=== PATIENT | female | born 1985 | race Caucasian/White ===

== ENCOUNTER 2017-06-13 22:33 | Observation (INO) | payer OTHER ==
[2017-06-13] MEDS ORDERED: CYCLOBENZAPRINE 10 MG TAB PO ONE (22:52)
[2017-06-13] MEDS ORDERED: CYCLOBENZAPRINE 10 MG TAB ONE (22:52)
[2017-06-13 23:05] LABS: BASOPHILS % (AUTO) 1 % (0-3); EOSINOPHILS % (AUTO) 0 % (0-9); HEMATOCRIT 32 % (35-47); HEMOGLOBIN 11.5 gm/dl (12.0-15.5); LYMPHOCYTES % (AUTO) 14.4 % (10-50); MEAN CORPUSCULAR HEMOGLOBIN 31.1 pg (27.0-32.0); MEAN CORPUSCULAR HGB CONC 36.4 gm/dl (32.0-36.0); MEAN CORPUSCULAR VOLUME 86 fL (81-99); MONOCYTES % (AUTO) 6.4 % (0-12)
[2017-06-13 23:16] LABS: ALBUMIN 3.5 gm/dl (3.4-5.0); BILIRUBIN,TOTAL 0.5 mg/dl (0.2-1.0); CALCIUM 8.1 mg/dl (8.5-10.1); CARBON DIOXIDE 23.4 mEq/L (21-32); CREATININE 0.8 mg/dl (0.60-1.00); TOTAL PROTEIN 6.8 gm/dl (6.4-8.2)
[2017-06-13] MEDS ORDERED: HYDROMORPHONE 1 MG/ML SYRINGE IV ONE (23:45)
[2017-06-13] MEDS ORDERED: HYDROMORPHONE HCL 2 MG/ML SOL IV ONE (23:50)
[2017-06-13] MEDS ORDERED: HYDROMORPHONE HCL 2 MG/ML SOL ONE (23:51)
[2017-06-14] MEDS ORDERED: SODIUM CHLORIDE 0.9% 1000ML 1,000 ML IV ONE (00:24)
[2017-06-14] MEDS ORDERED: HYDROMORPHONE HCL 2 MG/ML SOL IV ONE ×2 (00:58→01:13)
[2017-06-14] MEDS ORDERED: HYDROMORPHONE HCL 2 MG/ML SOL ONE ×2 (01:01→01:14)
[2017-06-14] MEDS ORDERED: DIPHENHYDRAMINE 50 MG/ML SOL IV ONE (01:24)
[2017-06-14] MEDS ORDERED: DIPHENHYDRAMINE 50 MG/ML SOL ONE (01:27)
[2017-06-14] MEDS ORDERED: LACTATED RINGERS 1,000 ML IV SCH (01:45)
[2017-06-14] MEDS ORDERED: ACETAMINOPHEN 325 MG PO ONE (01:57)
[2017-06-14] MEDS ORDERED: KETOROLAC TROMETHAMINE 30 MG/ML SOL IV ONE (01:59)
[2017-06-14] MEDS ORDERED: KETOROLAC TROMETHAMINE 30 MG/ML SOL ONE (02:01)
[2017-06-14] MEDS ORDERED: ACETAMINOPHEN 325 MG ONE (02:03)
[2017-06-14] MEDS ORDERED: CYCLOBENZAPRINE 10 MG TAB PO SCH (09:00)
[2017-06-14] MEDS: HYDROMORPHONE HCL 2 MG/ML SOL IV PRN ×3 (10:34→22:18)
[2017-06-14] MEDS: ACETAMINOPHEN 325 MG PO PRN ×3 (14:06→22:09)
[2017-06-14 20:20] LABS: APPEARANCE,URINE Clear; BILIRUBIN,URINE NEGATIVE (NEGATIVE); COLOR,URINE Dark yellow; GLUCOSE, URINE (UA) NEGATIVE (NEGATIVE); KETONES,URINE 1+ (NEGATIVE); LEUKOCYTE ESTERASE ,URINE NEGATIVE (NEGATIVE); NITRATE,URINE NEGATIVE (NEGATIVE); OCCULT BLOOD,URINE NEGATIVE (NEG-TRACE)
[2017-06-14 20:31] LABS: BACTERIA 1+ (< 1+); CRYSTALS NEGATIVE (0-3 AVE/HPF); RBC,URINE 0-2 (0-3AV/HPF)
[2017-06-14] MEDS: SODIUM CHLORIDE 0.9% FLUSH 10 ML SOL IV PRN (22:18)
[2017-06-15 00:12] VITALS: RESP 14
[2017-06-15] MEDS: SODIUM CHLORIDE 0.9% FLUSH 10 ML SOL IV SCH ×2 (00:55→09:22)
[2017-06-15] MEDS: ACETAMINOPHEN 325 MG PO PRN (03:21)
[2017-06-15] MEDS: HYDROMORPHONE HCL 2 MG/ML SOL IV PRN (05:25)
[2017-06-15] MEDS: SODIUM CHLORIDE 0.9% FLUSH 10 ML SOL IV PRN (05:27)
[2017-06-15 08:11] VITALS: BP 131/82; PULSE 80; TEMP 98; O2SAT 100
[2017-06-15] MEDS ORDERED: APAP/HYDROCODONE 325/5 TAB PO PRN (08:39)
== END 2017-06-15 13:00 | disposition home or self-care (01) ==
LOC: ED 22:33 → ACUTE CARE 06-14 01:35
PROVIDERS: ADMIT Emergency Medicine; ATTEND Emergency Medicine
PROC: F01K5ZZ Range of Motion and Joint Integrity Assessment of Musculoskeletal System - Upper Back / Upper Extremity (ICD-10-PCS; principal; 2017-06-14)
PROC: F01L5ZZ Range of Motion and Joint Integrity Assessment of Musculoskeletal System - Lower Back / Lower Extremity (ICD-10-PCS; 2017-06-14)
PROC: F0125ZZ Range of Motion and Joint Integrity Assessment of Neurological System - Lower Back / Lower Extremity (ICD-10-PCS; 2017-06-14)
DX: M54.30 Sciatica, unspecified side (principal); R55 Syncope and collapse; M54.5 Low back pain; Z33.1 Pregnant state, incidental; Z3A.08 8 weeks gestation of pregnancy
CPT/HCPCS: 36415; 72148; 80053; 81001; 85025; 93005; 93012; 96365; 96374; 96375; 99219; 99285; J1170; J1200; J1885; A9270-GY

== ENCOUNTER 2017-06-25 08:55 | Day surgery (SDC) | payer OTHER ==
[2017-06-15 08:11] VITALS: O2SAT 100
[2017-06-25 09:27] VITALS: RESP 12
[2017-06-25] MEDS ORDERED: BUPIVACAINE HCL 0.25% MPF 10 ML SOL INFIL ONE (09:28)
[2017-06-25] MEDS ORDERED: DEXAMETHASONE SOD PHOS PF 10 MG/ML SOL IJ ONE (09:28)
[2017-06-25 09:54] VITALS: BP 114/66; PULSE 68; TEMP 98.6
== END 2017-06-25 10:00 | disposition home or self-care (01) ==
LOC: SURG 08:55
PROVIDERS: ATTEND Nurse Anesthetist, Certified Registered
DX: M54.5 Low back pain (principal); M54.16 Radiculopathy, lumbar region
CPT/HCPCS: J1100

== ENCOUNTER 2018-01-19 03:09 | Inpatient (IN) | payer OTHER ==
[2018-01-19] MEDS ORDERED: CARBOPROST 250 MCG/ML SOL IM PRN (04:16)
[2018-01-19] MEDS ORDERED: METHYLERGONOVINE MALEATE 0.2 MG/ML SOL IM PRN (04:16)
[2018-01-19] MEDS ORDERED: MEPIVACAINE HCL 1% MPF 30 ML/VIAL SOL INFIL PRN (04:16)
[2018-01-19] MEDS ORDERED: LACTATED RINGERS 1,000 ML IV PRN (04:16)
[2018-01-19] MEDS ORDERED: OXYTOCIN 10000 MU/ML SOL IM PRN (04:16)
[2018-01-19] MEDS ORDERED: FENTANYL 100MCG/2ML SOL IV PRN (04:16)
[2018-01-19] MEDS ORDERED: AMPICILLIN 1 GM PDS 2 GM in SODIUM CHLORIDE 0.9% 100 ML 100 ML IV SCH (04:30)
[2018-01-19] MEDS ORDERED: AMPICILLIN 1 GM PDS ONE ×4 (04:36→15:51)
[2018-01-19] MEDS: SODIUM CHLORIDE 0.9% FLUSH 10 ML SOL IV SCH ×2 (04:46→13:43)
[2018-01-19] MEDS: SODIUM CHLORIDE 0.9% FLUSH 10 ML SOL IV PRN ×3 (05:22→11:46)
[2018-01-19] MEDS: AMPICILLIN 1 GM PDS 1 GM in SODIUM CHLORIDE 0.9% 100 ML 100 ML IV SCH ×3 (08:01→15:54)
[2018-01-19] MEDS ORDERED: NALOXONE HYDROCHLORIDE 0.4 MG/ML SOL IV PRN (08:45)
[2018-01-19] MEDS ORDERED: LACTATED RINGERS 1,000 ML IV SCH (08:45)
[2018-01-19] MEDS ORDERED: EPHEDRINE SULFATE 50 MG/ML SOL IV PRN (08:45)
[2018-01-19] MEDS ORDERED: DIPHENHYDRAMINE 50 MG/ML SOL IV PRN (08:45)
[2018-01-19] MEDS ORDERED: NALBUPHINE HCL 20 MG/ML SOL IV PRN (08:45)
[2018-01-19 09:04] LABS: BASOPHILS % (AUTO) 0 % (0-3); EOSINOPHILS % (AUTO) 0 % (0-9); HEMATOCRIT 36 % (35-47); LYMPHOCYTES % (AUTO) 17.1 % (10-50); MEAN CORPUSCULAR HEMOGLOBIN 29.2 pg (27.0-32.0); MEAN CORPUSCULAR HGB CONC 33.1 gm/dl (32.0-36.0); MEAN CORPUSCULAR VOLUME 88 fL (81-99); MONOCYTES % (AUTO) 6.5 % (0-12); NEUTROPHILS % (AUTO) 75.4 % (37-80)
[2018-01-19] MEDS: LACTATED RINGERS 1,000 ML IV SCH ×2 (11:41→12:00)
[2018-01-19] MEDS ORDERED: FENTANYL 250 MCG/ 5ML SOL ONE (12:13)
[2018-01-19] MEDS ORDERED: LIDOCAINE HCL 2% MPF 10 ML SOL ONE (12:13)
[2018-01-19] MEDS ORDERED: ROPIVACAINE HYDROCHLORIDE 5 MG/ML SOL ONE (12:13)
[2018-01-19] MEDS ORDERED: TEMAZEPAM 15MG 15 MG CAP PO PRN (16:16)
[2018-01-19] MEDS ORDERED: WITCH HAZEL 1 EA PAD TOP PRN (16:16)
[2018-01-19] MEDS ORDERED: FLEET ENEMA PR PRN (16:16)
[2018-01-19] MEDS ORDERED: METHYLERGONOVINE MALEATE 0.2 MG TAB PO PRN (16:16)
[2018-01-19] MEDS ORDERED: BISACODYL 10 MG SUP PR PRN (16:16)
[2018-01-19] MEDS ORDERED: BENZOCAINE/MENTHOL 1 SPR TOP PRN (16:16)
[2018-01-19] MEDS ORDERED: APAP/HYDROCODONE 1 EACH TABLET PO PRN (16:16)
[2018-01-19] MEDS: DOCUSATE SODIUM 100 MG SGL PO SCH (20:57)
[2018-01-20] MEDS: IBUPROFEN 600 MG TAB PO PRN ×4 (00:17→21:16)
[2018-01-20] MEDS: DOCUSATE SODIUM 100 MG SGL PO SCH ×2 (08:32→21:16)
[2018-01-20 09:32] VITALS: RESP 16
[2018-01-20] MEDS ORDERED: HYDROCORTISONE 1% CREAM 1 APPL CRE TOP ONE ×2 (10:52→21:13)
[2018-01-20] MEDS: HYDROCORTISONE 1% CREAM 1 APPL CRE TOP SCH ×2 (13:00→21:16)
[2018-01-20 23:59] VITALS: PULSE 70
[2018-01-21] MEDS ORDERED: FOLIC ACID 1 MG TAB PO SCH (09:00)
[2018-01-21] MEDS ORDERED: MULTIVITAMIN2 1 EA TAB PO SCH (09:00)
[2018-01-21] MEDS: DOCUSATE SODIUM 100 MG SGL PO SCH (09:25)
[2018-01-21] MEDS: HYDROCORTISONE 1% CREAM 1 APPL CRE TOP SCH (09:25)
[2018-01-21 09:34] VITALS: BP 132/87; TEMP 97.8; O2SAT 99
== END 2018-01-21 13:05 | disposition home or self-care (01) | DRG 560 ==
LOC: OB 03:09 → OBSVTOIN 03:09 → OB 01-20 08:01
PROVIDERS: ADMIT Family Medicine; ATTEND Family Medicine
PROC: 10E0XZZ Delivery of Products of Conception, External Approach (ICD-10-PCS; principal; 2018-01-19)
PROC: 6A550ZT Pheresis of Cord Blood Stem Cells, Single (ICD-10-PCS; 2018-01-19)
PROC: 3E04329 Introduction of Other Anti-infective into Central Vein, Percutaneous Approach (ICD-10-PCS; 2018-01-19)
DX: O80 Encounter for full-term uncomplicated delivery (principal); O99.824 Streptococcus B carrier state complicating childbirth; Z37.0 Single live birth; Z3A.38 38 weeks gestation of pregnancy
CPT/HCPCS: 36415; 59025; 85018; 85025; 99070; J0290; J0670; J2590; J2795; J3010; A9270-GY